=== PATIENT | male | born 1945 | race Caucasian/White ===

== ENCOUNTER 2022-06-29 10:59 | Emergency (ER) | payer MEDICARE ==
[~2022-06-29] VITALS: Ht 167.6 cm; Wt 73.0 kg
[2022-06-29] MEDS ORDERED: ACETAMINOPHEN 325MG TABLET PO STA (16:27)
[2022-06-29 17:07] LABS: BASOPHILS % 0.9 % (0.0-2.0); EOSINOPHILS % 4.9 % (0.0-5.0); HEMATOCRIT. 25.4 % (42.0-52.0); HEMOGLOBIN. 7.8 g/dL (14.0-18.0); MEAN CORPUSCULAR HEMOGLOBIN 19.5 pg (28.0-32.0); MEAN CORPUSCULAR VOLUME 63.1 fL (80.0-94.0); MEAN PLATELET VOLUME 8.4 fl (7.4-10.4); MONOCYTES % 4.8 % (2.0-8.0); NEUTROPHILS % 79.4 % (40.0-76.0); PLATELET 283 x1000/uL (130-400); RED BLOOD CELL COUNT 4.02 mill/uL (4.7-6.1); RED CELL DISTRIBUTION WIDTH 16.2 % (11.6-14.6)
[2022-06-29 17:16] LABS: CHLORIDE 108 mEq/L (98-107)
[2022-06-29 17:35] LABS: CLARITY URINE CLEAR (CLEAR); COLOR URINE YELLOW (YELLOW); KETONES URINE NEGATIVE (NEGATIVE); LEUKOCYTE ESTERASE URINE NEGATIVE (NEGATIVE); NITRITE URINE NEGATIVE (NEGATIVE); OCCULT BLOOD URINE NEGATIVE (NEGATIVE); PH URINE 5.5 (4.5-8.0); PROTEIN URINE NEGATIVE (NEGATIVE); SPECIFIC GRAVITY URINE 1.012 (1.005-1.030); UROBILINOGEN URINE 0.2 E.U./dL (0.2-1.0)
[2022-06-29 17:56] LABS: PLATELET ESTIMATE NORMAL
[2022-06-29] MEDS ORDERED: TOPUD MT (19:24)
[2022-06-29 19:46] VITALS: BP 148/83
== END 2022-06-29 19:47 | disposition home or self-care (01) ==
LOC: ER 10:59
DX: R10.9 Unspecified abdominal pain (principal); D64.9 Anemia, unspecified; I10 Essential (primary) hypertension
CPT/HCPCS: 36415; 74176; 80053; 81003; 85025; 99284